=== PATIENT | female | born 1955 | race Two or more races ===

== ENCOUNTER → 2024-06-27 | Outpatient (CLI) | payer OTHER, SELFPAY ==
[2024-06-27 13:44] LABS: Alanine Aminotransferase 26 U/L (10-49); Albumin, Serum 4.5 gm/dL (3.4-4.8); Alkaline Phosphatase 125 U/L (46-116); Aspartate Amino Transferase 19 U/L (0-34); Bilirubin,Direct 0.1 mg/dL (0.0-0.3); Bilirubin,Total 0.3 mg/dL (0.3-1.2); C-Reactive Protein < 0.4 mg/dL (0.0-0.9); Total Protein 7.2 gm/dL (5.7-8.2)
[2024-07-04 23:36] LABS: Liver Fibro A-2 Macroglobulin 154 mg/dL (106-279); Liver Fibrosis ALT 21 U/L (6-29); Liver Fibrosis Apolipoprot A1 192 mg/dL (101-198); Liver Fibrosis GGTP 9 U/L (3-65); Liver Fibrosis Haptoglobin 174 mg/dL (43-212); Liver Fibrosis Reference ID 5212702; Liver Fibrosis Score 0.03; Liver Fibrosis Stage F0; Liver Fibrosis Total Bilirubin 0.2 mg/dL (0.2-1.2); Necroinflammat Act Grade A0; Necroinflammat Act Score 0.06
[2024-07-05 06:41] LABS: CA 19-9 Antigen* 12 U/mL (<34)
== END | disposition home or self-care (01) ==
LOC: COPL 12:03
PROVIDERS: PCP Specialist; Referring Provider Internal Medicine Gastroenterology; Visit Provider Internal Medicine Gastroenterology
DX: R10.13 Epigastric pain (principal)
CPT/HCPCS: 36415; 80076; 81596; 86140; 86301

== ENCOUNTER → 2024-06-29 | Outpatient (CLI) | payer OTHER, SELFPAY ==
[2024-07-09 07:24] LABS: Helicobacter pylori Ag, Stool* NOT DETECTED (NOT DETECTED)
== END | disposition home or self-care (01) ==
LOC: SLDO 12:21
PROVIDERS: PCP Internal Medicine Gastroenterology; Referring Provider Internal Medicine Gastroenterology; Visit Provider Internal Medicine Gastroenterology
DX: R10.13 Epigastric pain (principal)
CPT/HCPCS: 87338

== ENCOUNTER 2024-08-03 09:02 | Outpatient (RCR) | payer OTHER, MEDICAID, SELFPAY ==
--- NOTE | 2024-08-03 10:00 | XR_ITS ---
Examination: LINUS, hepatobiliary radioisotope scan Date and time of exam: August 03, 2024 at 0956 hours INDICATIONS: Right upper abdominal pain nausea vomiting acid reflux beginning April 2024, post cholecystectomy Technique: 5.6 mCi of 99M Hepatolite administered. Serial imaging then obtained from immediate through 60 minutes. Findings: Radioisotope activity within the liver is reasonably homogenous. No gallbladder activity Abundant activity in the common hepatic common bile duct and small bowel IMPRESSION: Negative for extrahepatic biliary tract obstruction
== END 2024-08-08 23:59 | disposition home or self-care (01) ==
LOC: SNUC 09:02
PROVIDERS: PCP Specialist; Referring Provider Internal Medicine Gastroenterology; Visit Provider Internal Medicine Gastroenterology
DX: R10.13 Epigastric pain (principal)
CPT/HCPCS: 78227; A9537

== ENCOUNTER → 2024-09-19 | Outpatient (CLI) | payer OTHER, SELFPAY ==
[2024-09-19 15:18] LABS: Glucose Estimated Average 151 mg/dL (80-131); Hemoglobin A1C 6.9 % Hgb (4.8-6.0)
[2024-09-19 15:27] LABS: Alanine Aminotransferase 23 U/L (10-49); Albumin, Serum 4.5 gm/dL (3.4-4.8); Albumin/Globulin Ratio 1.7 (1.2-2.2); Alkaline Phosphatase 112 U/L (46-116); Anion Gap 9 (7-16); Aspartate Amino Transferase 17 U/L (0-34); BUN/Creatinine Ratio 20 Ratio (12-20); Bilirubin,Total 0.3 mg/dL (0.3-1.2); Blood Urea Nitrogen 20 mg/dL (9-23); Calcium 9.4 mg/dL (8.3-10.6); Calcium (Corrected) 9.4 mg/dL (8.5-10.1); Carbon Dioxide 26.7 mMol/L (20.0-31.0); Chloride 109 mMol/L (98-107); Cholesterol 140 mg/dL (132-200); Globulin 2.6 gm/dL (2.3-3.5); Glucose 90 mg/dL (74-106); HDL Cholesterol 71 mg/dL (40-60); LDL Cholesterol,Calculated 40 mg/dL (0-130); Osmolality,Calculated 291 (275-295); Potassium 4.4 mMol/L (3.4-5.1); Sodium 145 mMol/L (136-145); Total Protein 7.1 gm/dL (5.7-8.2); Triglycerides 146 mg/dL (30-150); eGFR > 60 See Note
[2024-09-19 15:27] LABS: Creatinine MALB Rnd Ur 103 mg/dL (30-125); Microalbumin Creat Ratio 21 mg/gCrea (<30); Microalbumin, Random Urine 22 mg/L (0-300)
== END | disposition home or self-care (01) ==
LOC: COPL 13:29
PROVIDERS: PCP Specialist; Referring Provider Specialist; Visit Provider Specialist
DX: E11.69 Type 2 diabetes mellitus with other specified complication (principal)
CPT/HCPCS: 36415; 80053; 80061; 82043; 82570; 83036

== ENCOUNTER → 2024-11-05 | Outpatient (CLI) | payer OTHER, SELFPAY ==
[2024-11-05 16:11] LABS: B-Type Natriuretic Peptide 39 pg/mL (0-100)
[2024-11-05 16:16] LABS: Alanine Aminotransferase 51 U/L (10-49); Albumin, Serum 4.7 gm/dL (3.4-4.8); Albumin/Globulin Ratio 1.6 (1.2-2.2); Alkaline Phosphatase 111 U/L (46-116); Anion Gap 11 (7-16); Aspartate Amino Transferase 37 U/L (0-34); BUN/Creatinine Ratio 19 Ratio (12-20); Bilirubin,Total 0.5 mg/dL (0.3-1.2); Blood Urea Nitrogen 19 mg/dL (9-23); Calcium 9.5 mg/dL (8.3-10.6); Calcium (Corrected) 9.5 mg/dL (8.5-10.1); Carbon Dioxide 25.5 mMol/L (20.0-31.0); Chloride 106 mMol/L (98-107); Free T4 (Free Thyroxine) 1.25 ng/dL (0.89-1.76); Glucose 129 mg/dL (74-106); Osmolality,Calculated 287 (275-295); Sodium 142 mMol/L (136-145); Thyroid Stimulating Hormone 2.22 uIU/mL (0.55-4.78); Total Protein 7.7 gm/dL (5.7-8.2); Troponin I < 0.002 ng/mL (0.0-0.045); eGFR > 60 See Note
[2024-11-05 16:43] LABS: D-Dimer 366 ng/mL (<600)
== END | disposition home or self-care (01) ==
PROVIDERS: PCP Specialist; Referring Provider Specialist; Visit Provider Specialist
DX: E03.9 Hypothyroidism, unspecified (principal)
CPT/HCPCS: 36415; 80053; 83880; 84439; 84443; 84484; 85379

== ENCOUNTER → 2024-12-26 | Outpatient (CLI) | payer OTHER, SELFPAY ==
[2024-12-26 11:41] LABS: Glucose Estimated Average 143 mg/dL (80-131); Hemoglobin A1C 6.6 % Hgb (4.8-6.0)
[2024-12-26 11:54] LABS: Alanine Aminotransferase 35 U/L (10-49); Albumin, Serum 4.5 gm/dL (3.4-4.8); Albumin/Globulin Ratio 1.5 (1.2-2.2); Alkaline Phosphatase 119 U/L (46-116); Anion Gap 11 (7-16); Aspartate Amino Transferase 29 U/L (0-34); BUN/Creatinine Ratio 18 Ratio (12-20); Bilirubin,Total 0.5 mg/dL (0.3-1.2); Blood Urea Nitrogen 18 mg/dL (9-23); Calcium 9.2 mg/dL (8.3-10.6); Calcium (Corrected) 9.2 mg/dL (8.5-10.1); Carbon Dioxide 25.3 mMol/L (20.0-31.0); Cardiac Risk Estimate 2.3 RATIO (3.7-5.6); Chloride 108 mMol/L (98-107); Cholesterol 162 mg/dL (132-200); Glucose 149 mg/dL (74-106); HDL Cholesterol 70 mg/dL (40-60); LDL Cholesterol,Calculated 68 mg/dL (0-130); Osmolality,Calculated 291 (275-295); Potassium 4.2 mMol/L (3.4-5.1); Sodium 144 mMol/L (136-145); Total Protein 7.5 gm/dL (5.7-8.2); Triglycerides 120 mg/dL (30-150); eGFR > 60 See Note
[2024-12-26 12:13] LABS: Creatinine MALB Rnd Ur 82 mg/dL (30-125); Microalbumin Creat Ratio 59 mg/gCrea (<30); Microalbumin, Random Urine 48 mg/L (0-300)
== END | disposition home or self-care (01) ==
PROVIDERS: PCP Specialist; Referring Provider Specialist; Visit Provider Specialist
DX: E11.65 Type 2 diabetes mellitus with hyperglycemia (principal); E78.2 Mixed hyperlipidemia
CPT/HCPCS: 36415; 80053; 80061; 82043; 82570; 83036

== ENCOUNTER → 2025-01-16 | Outpatient (CLI) | payer OTHER, SELFPAY ==
--- NOTE | 2025-01-16 14:04 | XR_ITS ---
Examination: Abdomen AP single view Technique: AP portable supine abdomen, single view Exam date and time: January 16, 2025 1407 hours INDICATIONS: Abdominal pain beginning 3 days ago FINDINGS: Moderate stool throughout the colon Surgical clips upper right abdomen No obstruction No free air Intact osseous structures IMPRESSION: Moderate stool throughout the colon
[2025-01-16 14:51] LABS: Collection Type, Urine Clean Catch
[2025-01-16 15:09] LABS: Basophils # (Auto) 0.1 Thou/mm3 (0.0-0.2); Basophils % (Auto) 1 % (0-2.5); Eosinophils # (Auto) 0.2 Thou/mm3 (0.0-0.5); Eosinophils % (Auto) 3 % (0-10); Hematocrit 40.6 % (36.0-46.0); Hemoglobin 13.7 g/dL (12.0-16.0); Immature Granulocytes % (Auto) 0 % (0-0); Immature Granulocytes Auto 0.02 Thou/mm3 (0.00-0.00); Lymphocytes # (Auto) 2.1 Thou/mm3 (1.0-4.8); Lymphocytes % (Auto) 25 % (10-50); Mean Corpuscular HGB Conc 33.7 g/dl (31.0-37.0); Mean Corpuscular Volume 92 fL (80-100); Monocytes # (Auto) 0.6 Thou/mm3 (0.0-0.8); Monocytes % (Auto) 7 % (0-12); Neutrophils # (Auto) 5.6 Thou/mm3 (1.8-7.7); Neutrophils % (Auto) 65 % (37-80); Nucleated Red Blood Cell % 0 /100 WBC (0); Platelet Count 263 Thou/mm3 (140-440); RDW Standard Deviation 46.3 fL (36.4-46.3); Red Blood Count 4.42 Miln/mm3 (4.00-5.20); White Blood Count 8.7 Thou/mm3 (3.6-11.0)
--- NOTE | 2025-01-16 15:11 | XR_ITS ---
Examination: CT abdomen and pelvis without contrast. Coronal 3-D reconstructions. Sagittal 2-D reconstructions. Date and time of exam:January 16, 2025 1544 hours INDICATIONS: Generalized abdominal pain beginning 3 days ago CTDI: vol (mGy): 6.70 DLP: (mGycm): 377 Technique: Axial images of the abdomen have been obtained, 3 mm slice thickness Intravenous contrast material has not been administered. Low dose protocols were performed. One or more of the following dose reduction techniques were used; automated exposure control, adjustment of the mA and/or KV according to patient size, use of iterative reconstruction technique. Findings: Diffuse fatty infiltration throughout the liver Absent gallbladder Spleen not enlarged Common bile duct 12 mm No pancreatic mass [id number] bilateral renal parenchymal scar formation. No renal or ureteral calculi, no hydronephrosis 4 mm fat-containing umbilical hernia No pericecal inflammatory change Scattered colonic diverticulosis, no diverticulitis Absent uterus Contracted urinary bladder Moderate osteopenia IMPRESSION: Mildly enlarged common bile duct 12 mm, recommend hepatobiliary sonography follow-up [id number] bilateral renal parenchymal scar formation, no renal or ureteral calculi, no hydronephrosis Scattered colonic diverticulosis, no diverticulitis
[2025-01-16 15:14] LABS: Bacteria,Urine Rare; Bilirubin,Urine Negative (Negative); Blood,Urine Negative (Negative); Clarity,Urine Clear (Clear/Hazy); Color,Urine Lt-Yellow (Lt Yel-Yel); Glucose, Urine Negative (Negative); Hyaline Casts,Urine < 1 /hpf (0-1); Ketones,Urine Negative (Negative); Leukocyte Esterase,Urine Negative (Negative); Nitrite,Urine Negative (Negative); PH,Urine 6.5 (5.0-7.0); Protein,Urine 1+ (Neg - Trace); RBC,Urine 3 /hpf (0-3); Specific Gravity,Urine 1.027 (1.001-1.035); Squamous Epithelial Cell,Urine 3 /hpf (0-5); Urobilinogen,Urine Negative mg/dL (0.0-1.0); WBC,Urine 1 /hpf (0-5)
[2025-01-16 15:34] LABS: C-Reactive Protein < 0.5 mg/dL (0.0-0.9); Procalcitonin 0.11 ng/ml (0.0-0.49)
[2025-01-16 15:36] LABS: Sed Rate (ESR) 28 mm/hr (0-30)
[2025-01-16 21:50] LABS: Alanine Aminotransferase 40 U/L (10-49); Albumin, Serum 4.7 gm/dL (3.4-4.8); Albumin/Globulin Ratio 1.7 (1.2-2.2); Alkaline Phosphatase 121 U/L (46-116); Anion Gap 17 (7-16); Aspartate Amino Transferase 36 U/L (0-34); BUN/Creatinine Ratio 23 Ratio (12-20); Bilirubin,Total 0.4 mg/dL (0.3-1.2); Blood Urea Nitrogen 23 mg/dL (9-23); Calcium 9.4 mg/dL (8.3-10.6); Calcium (Corrected) 9.4 mg/dL (8.5-10.1); Chloride 109 mMol/L (98-107); Globulin 2.7 gm/dL (2.3-3.5); Glucose 144 mg/dL (74-106); Osmolality,Calculated 300 (275-295); Sodium 148 mMol/L (136-145); Total Protein 7.4 gm/dL (5.7-8.2); eGFR > 60 See Note
[2025-01-22 06:39] LABS: Complement Component C4c* 29 mg/dL (15-57)
== END | disposition home or self-care (01) ==
LOC: CDIM 14:01 → COPL 14:29
PROVIDERS: PCP Specialist; Referring Provider Specialist; Visit Provider Specialist
DX: R10.84 Generalized abdominal pain (principal)
CPT/HCPCS: 36415; 74018; 74176; 80053; 81001; 84145; 85025; 85652; 86140; 86160; 87086

== ENCOUNTER 2025-03-11 10:15 | Outpatient (AMB) | payer OTHER, SELFPAY ==
--- NOTE | 2025-03-11 10:29 | GSCOFFNT_ITS ---
Vital Signs - [facility] 03/11/25 10:30 Height 1.5 m Height Method Measured Weight 67.642 kg Weight Measurement Method Standing Scale BMI 30.0 BP 178/85 H Blood Pressure Source Automatic Cuff Blood Pressure Location Right Upper Arm Position Sitting Respiration 18 Pulse 76 Pulse Source Monitor Temp 96.0 F L Temp Source Temporal Artery Scan Pulse Oximetry (%) 94 L Oxygen Delivery Method Room Air Med/Allergies Allergies & Medications Allergies codeine Allergy (Intermediate, Verified 03/11/25 10:34) HIVES atorvastatin (From Lipitor) Allergy (Verified 03/11/25 10:34) Weakness metformin Allergy (Verified 03/11/25 10:34) NAUSEA, VOMITING metoprolol (From Toprol XL) Allergy (Verified 03/11/25 10:34) Nausea eszopiclone Adverse Reaction (Intermediate, Verified 03/11/25 10:34) SLEEP WALKING,AMNESIA ACEI Allergy (Uncoded 03/11/25 10:34) Unresponsive Medication Reconciliation nitroglycerin 0.4 mg sublingual tablet (Nitrostat) 0.4 mg SL PRN PRN CHEST TIGHTNESS #0 tabs 04/19/14 [History Confirmed 03/11/25] montelukast 10 mg tablet (Singulair) 10 mg PO QPM 05/02/19 [History Confirmed 03/11/25] rosuvastatin 5 mg tablet 40 mg PO QDAY 05/02/19 [History Confirmed 03/11/25] ipratropium 0.5 mg-albuterol 3 mg (2.5 mg base)/3 mL nebulization soln 3 ml inhalation Q4HR PRN Shortness Of Breath 11/25/20 [History Confirmed 03/11/25] tramadol 50 mg tablet 50 mg PO TID PRN Pain 11/25/20 [History Confirmed 03/11/25] isosorbide mononitrate 30 mg tablet,extended release 24 hr 30 mg PO QDAY 08/17/21 [History Confirmed 03/11/25] linagliptin 5 mg tablet (Tradjenta) 5 mg PO 1XD 04/24/24 [History Confirmed 03/11/25] melatonin 10 mg tablet 10 mg PO HS PRN Insomnia 04/24/24 [History Confirmed 03/11/25] amiloride 5 mg tablet 5 mg PO QDAY #30 tabs 05/01/24 [Rx Confirmed 03/11/25] erythromycin ethylsuccinate 400 mg/5 mL oral powder for suspension 400 mg (5 mL) PO QDAY #100 mL 05/01/24 [Rx Confirmed 03/11/25] losartan 50 mg tablet 50 mg PO QDAY #30 tabs 05/01/24 [Rx Confirmed 03/11/25] MA Intake Visit Data Collection New Patient or Established: Established Patient (seen at [facility] within 3 years) Seen by Clinical Staff ONLY (RN/MA): No Pain Present Currently: Yes (ABDOMINAL DISCOMFORT) Pain Location: Abdomen Pain scale:: 1 Pain Scale Used: [place]/Numerical Silk Screen Etcher Required: No PCP or OBGYN visit in last 3 months: Yes Hx Now: No Do You Feel Safe at Home: Yes Authorities Contacted: N/A Smoking Status Smoking Status: Never smoker Immunization / Flu Flu Vaccine in the Last 12 Months: Yes Flu Vaccine Exclusion Criteria: Already Received Past Medical History Past Medical History NEUROLOGIC: Negative Neurological Disorders or Seizures CARDIAC: Positive Cardiac Disorders, Myocardial Infarction (1 CARDIAC STENT), Angina, Atherosclerotic Heart Disease, Hypercholesterolemia, Congestive Heart Failure and Hypertension RESPIRATORY: Positive Chronic Obstructive Pulmonary Disease (COPD), Asthma, Bronchitis and Sleep Apnea GASTROINTESTINAL: Positive Irritable Bowel, Hemorrhoids and Gastroesophageal Reflux Disease; Negative Gastrointestinal Disorders or Hepatitis GENITOURINARY: Negative Genitourinary Disorders or Renal Disease REPRODUCTIVE: Positive Previous Pregnancies; Negative Breast Cancer MUSCULOSKELETAL: Positive Arthritis ENT: Positive Cataracts (BILATERAL WITH IOL) ENDOCRINE: Positive Endocrine Disorders and Diabetes Mellitus Type 2; Negative Diabetes Mellitus Type 1 HEMATOLOGIC: Negative Blood Disorders, Anemia or Sickle Cell Disease OTHER HISTORY: Positive Chicken Pox; Negative Falls, Blood Transfusions, Blood Transfusion Reaction, Anesthesia Reactions, MRSA, Cancer or Breast Cancer Family History FAMILY HISTORY: Positive Family Cardiac Disorders (PARENTS); Negative Family Psychiatric Problems, Family Respiratory Disorders, Family Gastrointestinal Problems or Family Anesthesia Reaction Surgical History SURGICAL: Positive Cardiac Surgery (pt. stated that she had Stent placed in February of 2016), Coronary Stent, Angiogram, Abdominal Surgery, Arthroscopy and Hysterectomy; Negative Endocrine Surgery Social History SMOKING STATUS: Smoking status: Never smoker SECOND HAND EXPOSURE: second hand exposure: No ALCOHOL: Alcohol Intake: Never HOUSING: Housing: House LIVES WITH: Lives With: Spouse HPI HPI Narrative 69F with HTN, DMII, asthma, CAD referred for symptomatic hemorrhoids. Pt states she has long had difficulty having BMs, previously having BMs only on a weekly basis but she has worked hard to improve her diet, increase her water intake and has taken fiber as well as senokot such that she is able to have BMs more regularly but still finds that her BMs are hard small pieces. She has also lately noticed difficulty controlling her BMs, sometimes having small amounts of stool leak out when she does not feel a sensation of having to go. Additionally pt reports perianal pain, sometimes it feels like she is passing razor blades as well as some bleeding. Pt underwent EGD/colonoscopy in the last year with findings of gastritis but colonoscopy was negative for any polyps. Pt does take sitz baths but feels there is minimal relief PMH: HTN, DMII, asthma, CAD with history of stent and occasional angina PSHx: Cardiac stent, abdominal repair of rectocele/cystocele, cholecystectomy, t otal hysterectomy Meds: Amiloride, erythromycin, ipratropium, isosorbide mononitrate, tradjenta, losartan, montelukast, nitroglycerin PRN, rosuvastatin, tramadol Allergies: codeine causes hives Social hx: Nonsmoker, gave vaginally x3 ROS Review of Systems Systems Reviewed: All systems reviewed, normal except as documented Objective/Exam General General Appearance: alert, cooperative and well groomed Resp Respiratory exam: Absent respiratory distress Rectal Rectal exam: Present other (sentinel pile at anterior midline of anus, tender to palpation, anoscopy deferred due to pain) Assessment & Plan Diagnosis / Problem List (1) Anal fissure: Status: Acute Assessment & Plan: 69F with HTN, DMII, asthma, CAD presenting with perianal pain as well as fecal incontinence. I explained that for the anal fissure a compound cream can be helpful to improve pain, however it costs $100 and pt understandably is not able to afford it right now. Although she has tried fiber in the past I recommended she try again and work up to 3 tbsp daily for a goal of 25g total daily, and to stop senokot for now as she sometimes have loose stools which likely contributes to her episodes of incontinence. She may benefit from physical therapy as well to strengthen pelvic floor muscles. Pt expressed willingness to try fiber again and will follow up in 6 weeks Advanced Care Planning Advance care planning discussed with:: other Office Procedures GNS Level of Care Nursing/Assessment Patient Status: Established Patient Nursing Assessment/Reassesment: Medication Reconciliation, Update PMH in EMR and Vital Signs Coordination of Care: Complex Care and Chronic Disease 1-5, Consent,records obtained, informed consent, Education Simp Pt/Fam, Results/Orders obtained and Staff clarify orders Established Patient Charge Established Patient Point Assignment: 90 Established Patient Point Charge: EP Level 3 (80-115) Patient Portal Questionaires Social History Living Situation History Housing: House Housing Other:: Pt form home Tobacco History Smoking Status: Never smoker Second Hand Smoke Exposure: No Alcohol History Alcohol Intake: Never Domestic Abuse History Do You Feel Safe at Home: Yes Review of Systems Report any current symptoms Only answer those that you have currently: Past Medical History Past Medical History Have you ever been diagnosed with any of the following: Neurological Problems Seizures: No Cardiology Problems Myocardial Infarction: Yes (1 CARDIAC STENT) Angina: Yes Atherosclerotic Heart Disease: Yes Hypercholesterolemia: Yes Congestive Heart Failure: Yes Hypertension: Yes Respiratory Problems Chronic Obstructive Pulmonary Disease (COPD): Yes Asthma: Yes Bronchitis: Yes Sleep Apnea: Yes Stomache/Intestinal Problems Hepatitis: No Irritable Bowel: Yes Hemorrhoids: Yes Gastroesophageal Reflux Disease: Yes Genital/Urinary Problems Renal Disease: No Reproductive Problems Breast Cancer: No Previous Pregnancies: Yes Musculoskeletal Problems Arthritis: Yes Head,Eye,Nose,Throat Problems Cataracts: Yes (BILATERAL WITH IOL) Endocrine Problems Diabetes Mellitus Type 1: No Diabetes Mellitus Type 2: Yes Blood Problems Anemia: No Sickle Cell Disease: No Other Problems Falls: No Blood Transfusions: No Blood Transfusion Reaction: No Anesthesia Reactions: No MRSA: No Chicken Pox: Yes Cancer: No Surgical History Hysterectomy: Yes
[2025-03-11 10:30] VITALS: BP 178/85; PULSE 76; RESP 18; TEMP 35.6; O2SAT 94
== END 2025-03-11 11:30 | disposition home or self-care (01) ==
PROVIDERS: PCP Specialist; Referring Provider Specialist; Supervising Provider Surgery; Visit Provider Surgery
DX: K60.2 Anal fissure, unspecified (principal); R15.9 Full incontinence of feces; E78.00 Pure hypercholesterolemia, unspecified; I11.0 Hypertensive heart disease with heart failure; I50.9 Heart failure, unspecified; J44.9 Chronic obstructive pulmonary disease, unspecified; E11.9 Type 2 diabetes mellitus without complications; I25.2 Old myocardial infarction
CPT/HCPCS: 99213; G0463

== ENCOUNTER → 2025-03-26 | Outpatient (CLI) | payer OTHER, SELFPAY ==
[2025-03-26 10:51] LABS: Glucose Estimated Average 160 mg/dL (80-131); Hemoglobin A1C 7.2 % Hgb (4.8-6.0)
[2025-03-26 10:58] LABS: B-Type Natriuretic Peptide 46 pg/mL (0-100)
[2025-03-26 11:11] LABS: Misc Send Out* See Sep Rpt
[2025-03-26 11:12] LABS: Alanine Aminotransferase 35 U/L (10-49); Albumin, Serum 4.7 gm/dL (3.4-4.8); Albumin/Globulin Ratio 2.0 (1.2-2.2); Alkaline Phosphatase 128 U/L (46-116); Anion Gap 14 (7-16); Aspartate Amino Transferase 35 U/L (0-34); BUN/Creatinine Ratio 15 Ratio (12-20); Bilirubin,Total 0.5 mg/dL (0.3-1.2); Blood Urea Nitrogen 20 mg/dL (9-23); Calcium 9.4 mg/dL (8.3-10.6); Calcium (Corrected) 9.4 mg/dL (8.5-10.1); Carbon Dioxide 29.6 mMol/L (20.0-31.0); Cardiac Risk Estimate 2.5 RATIO (3.7-5.6); Chloride 101 mMol/L (98-107); Cholesterol 155 mg/dL (132-200); Creatinine (Component) 1.3 mg/dL (0.6-1.3); Free T3 2.4 pg/mL (2.3-4.2); Free T4 (Free Thyroxine) 1.23 ng/dL (0.89-1.76); Globulin 2.4 gm/dL (2.3-3.5); Glucose 236 mg/dL (74-106); HDL Cholesterol 62 mg/dL (40-60); LDL Cholesterol,Calculated 61 mg/dL (0-130); Osmolality,Calculated 299 (275-295); Potassium 3.0 mMol/L (3.4-5.1); Sodium 145 mMol/L (136-145); Thyroid Stimulating Hormone 1.70 uIU/mL (0.55-4.78); Total Protein 7.1 gm/dL (5.7-8.2); Triglycerides 161 mg/dL (30-150); eGFR 44 See Note
[2025-03-26 11:58] LABS: Creatinine MALB Rnd Ur 132 mg/dL (30-125)
[2025-03-26 12:13] LABS: Microalbumin Creat Ratio 292 mg/gCrea (<30); Microalbumin, Random Urine 385 mg/L (0-300)
[2025-03-29 06:45] LABS: ACTH, Plasma* 17 pg/mL (6-50)
== END | disposition home or self-care (01) ==
LOC: COPL 09:55
PROVIDERS: PCP Specialist; Referring Provider Specialist; Visit Provider Specialist
DX: E03.9 Hypothyroidism, unspecified (principal); E11.65 Type 2 diabetes mellitus with hyperglycemia; E78.2 Mixed hyperlipidemia; R63.5 Abnormal weight gain
CPT/HCPCS: 36415; 80053; 80061; 82024; 82043; 82530; 82570; 83036; 83880; 84439; 84443; 84481

== ENCOUNTER → 2025-04-10 | Outpatient (CLI) | payer OTHER, SELFPAY ==
--- NOTE | 2025-04-10 | XR_ITS ---
Examination: Abdomen AP single view Technique: AP portable supine abdomen, single view Exam date and time: April 10, 2025, 1014 hrs. Indications: Abdominal pain beginning 3 months ago Findings: Moderate stool throughout the colon. No obstruction. No free air. Surgical clips upper right abdomen. Impression: Nonobstructive bowel gas pattern.
== END | disposition home or self-care (01) ==
PROVIDERS: PCP Specialist; Referring Provider Specialist; Visit Provider Specialist
DX: R14.0 Abdominal distension (gaseous) (principal); R10.13 Epigastric pain
CPT/HCPCS: 74018

== ENCOUNTER 2025-04-22 09:43 | Outpatient (AMB) | payer OTHER, SELFPAY ==
[2025-04-22 09:59] VITALS: BP 154/76; PULSE 63; RESP 18; TEMP 36.6; O2SAT 93
--- NOTE | 2025-04-22 09:59 | GSCOFFNT_ITS ---
Vital Signs - [facility] 04/22/25 09:59 Height 1.5 m Height Method Measured Weight 67.699 kg Weight Measurement Method Standing Scale BMI 30.0 BP 154/76 H Blood Pressure Source Automatic Cuff Blood Pressure Location Right Upper Arm Position Sitting Respiration 18 Pulse 63 Pulse Source Monitor Temp 97.9 F Temp Source Temporal Artery Scan Pulse Oximetry (%) 93 L Oxygen Delivery Method Room Air Med/Allergies Allergies & Medications Allergies codeine Allergy (Intermediate, Verified 04/22/25 10:00) HIVES atorvastatin (From Lipitor) Allergy (Verified 04/22/25 10:00) Weakness metformin Allergy (Verified 04/22/25 10:00) NAUSEA, VOMITING metoprolol (From Toprol XL) Allergy (Verified 04/22/25 10:00) Nausea eszopiclone Adverse Reaction (Intermediate, Verified 04/22/25 10:00) SLEEP WALKING,AMNESIA ACEI Allergy (Uncoded 04/22/25 10:00) Unresponsive Medication Reconciliation nitroglycerin 0.4 mg sublingual tablet (Nitrostat) 0.4 mg SL PRN PRN CHEST TIGHTNESS #0 tabs 04/19/14 [History Confirmed 04/22/25] montelukast 10 mg tablet (Singulair) 10 mg PO QPM 05/02/19 [History Confirmed 04/22/25] rosuvastatin 5 mg tablet 40 mg PO QDAY 05/02/19 [History Confirmed 04/22/25] ipratropium 0.5 mg-albuterol 3 mg (2.5 mg base)/3 mL nebulization soln 3 ml inhalation Q4HR PRN Shortness Of Breath 11/25/20 [History Confirmed 04/22/25] tramadol 50 mg tablet 50 mg PO TID PRN Pain 11/25/20 [History Confirmed 04/22/25] isosorbide mononitrate 30 mg tablet,extended release 24 hr 30 mg PO QDAY 08/17/21 [History Confirmed 04/22/25] linagliptin 5 mg tablet (Tradjenta) 5 mg PO 1XD 04/24/24 [History Confirmed 04/22/25] melatonin 10 mg tablet 10 mg PO HS PRN Insomnia 04/24/24 [History Confirmed 04/22/25] amiloride 5 mg tablet 5 mg PO QDAY #30 tabs 05/01/24 [Rx Confirmed 04/22/25] erythromycin ethylsuccinate 400 mg/5 mL oral powder for suspension 400 mg (5 mL) PO QDAY #100 mL 05/01/24 [Rx Confirmed 04/22/25] losartan 50 mg tablet 50 mg PO QDAY #30 tabs 05/01/24 [Rx Confirmed 04/22/25] MA Intake Visit Data Collection New Patient or Established: Established Patient (seen at [facility] within 3 years) Seen by Clinical Staff ONLY (RN/MA): No Reason for Visit:: F/U HEMORRHOIDS Pain Present Currently: No Pain Scale Used: [place]/Numerical Restaurant General Manager Required: No PCP or OBGYN visit in last 3 months: Yes Hx Now: No Do You Feel Safe at Home: Yes Authorities Contacted: N/A Smoking Status Smoking Status: Never smoker Immunization / Flu Flu Vaccine in the Last 12 Months: Yes Flu Vaccine Exclusion Criteria: Already Received Past Medical History Past Medical History NEUROLOGIC: Negative Neurological Disorders or Seizures CARDIAC: Positive Cardiac Disorders, Myocardial Infarction (1 CARDIAC STENT), Angina, Atherosclerotic Heart Disease, Hypercholesterolemia, Congestive Heart Failure and Hypertension RESPIRATORY: Positive Chronic Obstructive Pulmonary Disease (COPD), Asthma, Bronchitis and Sleep Apnea GASTROINTESTINAL: Positive Irritable Bowel, Hemorrhoids and Gastroesophageal Reflux Disease; Negative Gastrointestinal Disorders or Hepatitis GENITOURINARY: Negative Genitourinary Disorders or Renal Disease REPRODUCTIVE: Positive Previous Pregnancies; Negative Breast Cancer MUSCULOSKELETAL: Positive Arthritis ENT: Positive Cataracts (BILATERAL WITH IOL) ENDOCRINE: Positive Endocrine Disorders and Diabetes Mellitus Type 2; Negative Diabetes Mellitus Type 1 HEMATOLOGIC: Negative Blood Disorders, Anemia or Sickle Cell Disease OTHER HISTORY: Positive Chicken Pox; Negative Falls, Blood Transfusions, Blood Transfusion Reaction, Anesthesia Reactions, MRSA, Cancer or Breast Cancer Family History FAMILY HISTORY: Positive Family Cardiac Disorders (PARENTS); Negative Family Psychiatric Problems, Family Respiratory Disorders, Family Gastrointestinal Problems or Family Anesthesia Reaction Surgical History SURGICAL: Positive Cardiac Surgery (pt. stated that she had Stent placed in February of 2016), Coronary Stent, Angiogram, Abdominal Surgery, Arthroscopy and Hysterectomy; Negative Endocrine Surgery Social History SMOKING STATUS: Smoking status: Never smoker SECOND HAND EXPOSURE: second hand exposure: No ALCOHOL: Alcohol Intake: Never HOUSING: Housing: House LIVES WITH: Lives With: Spouse HPI HPI Narrative 69F with HTN, DMII, asthma, CAD here for follow up of hemorrhoids. At last visit pt had a symptomatic anal fissure but these symptoms have since improved. Pt reports she is taking AG1 once daily which contains 2g of fiber, as well as miralax and prune juice at her PCP recommendations and she is having somewhat loose stools and continuing to have episodes of incontinence. Pt also feels it is hard to keep the area clean, it is improved when she uses the bidet at her son's house but otherwise feels that she has to wipe frequently. At the moment she is not having any pain or bleeding, her main concerns being the incontinence and difficulty with hygiene ROS Review of Systems Systems Reviewed: All systems reviewed, normal except as documented Objective/Exam General General Appearance: alert, cooperative and well groomed Resp Respiratory exam: Absent respiratory distress Extremities Extremities exam: Present other (small external hemorrhoid, mild internal hemorrhoids on anoscopy with stool in vault) Assessment & Plan Diagnosis / Problem List (1) Hemorrhoids: Status: Acute Assessment & Plan: 69F with HTN, DMII, asthma, CAD here for follow up of hemorrhoids with symptoms of fecal incontinence and difficulty with hygiene. She is working hard at improving her bowel habits but is having loose stools which likely contribute to the incontinence. I recommended she increase her fiber intake and provided her an informative handout as to how much she needs daily, and also recommended that she wean off miralax and prune juice one at a time to this end. I did explain the THD procedure and provided a brochure on this as well but as she is still adjusting her bowel regimen I do not advise proceeding as of yet and pt is understanding on this front. All questions were answered and pt agrees to follow up again in 6 weeks Advanced Care Planning Advance care planning discussed with:: other Office Procedures GNS Level of Care Nursing/Assessment Patient Status: Established Patient Nursing Assessment/Reassesment: Medication Reconciliation, Update PMH in EMR and Vital Signs Coordination of Care: Complex Care and Chronic Disease 1-5, Consent,records obtained, informed consent, Education Simp Pt/Fam, Results/Orders obtained and Staff clarify orders Established Patient Charge Established Patient Point Assignment: 90 Established Patient Point Charge: EP Level 3 (80-115) Patient Portal Questionaires Social History Living Situation History Housing: House Housing Other:: Pt form home Tobacco History Smoking Status: Never smoker Second Hand Smoke Exposure: No Alcohol History Alcohol Intake: Never Domestic Abuse History Do You Feel Safe at Home: Yes Review of Systems Report any current symptoms Only answer those that you have currently: Past Medical History Past Medical History Have you ever been diagnosed with any of the following: Neurological Problems Seizures: No Cardiology Problems Myocardial Infarction: Yes (1 CARDIAC STENT) Angina: Yes Atherosclerotic Heart Disease: Yes Hypercholesterolemia: Yes Congestive Heart Failure: Yes Hypertension: Yes Respiratory Problems Chronic Obstructive Pulmonary Disease (COPD): Yes Asthma: Yes Bronchitis: Yes Sleep Apnea: Yes Stomache/Intestinal Problems Hepatitis: No Irritable Bowel: Yes Hemorrhoids: Yes Gastroesophageal Reflux Disease: Yes Genital/Urinary Problems Renal Disease: No Reproductive Problems Breast Cancer: No Previous Pregnancies: Yes Musculoskeletal Problems Arthritis: Yes Head,Eye,Nose,Throat Problems Cataracts: Yes (BILATERAL WITH IOL) Endocrine Problems Diabetes Mellitus Type 1: No Diabetes Mellitus Type 2: Yes Blood Problems Anemia: No Sickle Cell Disease: No Other Problems Falls: No Blood Transfusions: No Blood Transfusion Reaction: No Anesthesia Reactions: No MRSA: No Chicken Pox: Yes Cancer: No Surgical History Hysterectomy: Yes
== END 2025-04-22 11:04 | disposition home or self-care (01) ==
LOC: HODSRG 09:43
PROVIDERS: PCP Specialist; Referring Provider Specialist; Supervising Provider Surgery; Visit Provider Surgery
DX: K64.4 Residual hemorrhoidal skin tags (principal); K64.8 Other hemorrhoids; I11.0 Hypertensive heart disease with heart failure; I50.9 Heart failure, unspecified; E78.00 Pure hypercholesterolemia, unspecified; I25.10 Atherosclerotic heart disease of native coronary artery without angina pectoris; I25.2 Old myocardial infarction; J44.9 Chronic obstructive pulmonary disease, unspecified; K21.9 Gastro-esophageal reflux disease without esophagitis; E11.9 Type 2 diabetes mellitus without complications
CPT/HCPCS: 99213; G0463

== ENCOUNTER → 2025-04-22 | Outpatient (CLI) | payer OTHER, SELFPAY ==
--- NOTE | 2025-04-22 13:45 | XR_ITS ---
Examination: Screening digital mammography, bilateral Computer aided detection 3-D breast Tomosynthesis, bilateral Date and time of exam: April 22, 2025 1338 hours Compared to mammograms dating to July 28, 2015 Indication: Screening Technique: Nonmagnified MLO, CC views of the breasts to been obtained, reconstructed from 3-D Tomosynthesis images. R2 computer aided detection program utilized for evaluation of suspicious masses and/or abnormal calcifications. 3-D Tomosynthesis images obtained. Findings: Scattered areas of fibroglandular density. Benign calcifications. No interval suspicious masses Impression: BI-RADS category II: Benign Findings. Recommend 1 year follow-up mammogram.
== END | disposition home or self-care (01) ==
PROVIDERS: PCP Specialist; Referring Provider Specialist; Visit Provider Specialist
DX: Z12.31 Encounter for screening mammogram for malignant neoplasm of breast (principal); R92.323 Mammographic fibroglandular density, bilateral breasts; R92.1 Mammographic calcification found on diagnostic imaging of breast
CPT/HCPCS: 77063; 77067

== ENCOUNTER → 2025-04-29 | Outpatient (CLI) | payer OTHER, MEDICAID, SELFPAY ==
[2025-04-29 11:09] LABS: Collection Type, Urine Clean Catch
[2025-04-29 11:42] LABS: Parathyroid Hormone Intact 71.6 pg/ml (18.5-88.0)
[2025-04-29 11:46] LABS: Alanine Aminotransferase 47 U/L (10-49); Albumin, Serum 4.6 gm/dL (3.4-4.8); Albumin/Globulin Ratio 2.0 (1.2-2.2); Alkaline Phosphatase 141 U/L (46-116); Anion Gap 10 (7-16); Aspartate Amino Transferase 32 U/L (0-34); BUN/Creatinine Ratio 22 Ratio (12-20); Bilirubin,Total 0.3 mg/dL (0.3-1.2); Blood Urea Nitrogen 22 mg/dL (9-23); Calcium 9.8 mg/dL (8.3-10.6); Calcium (Corrected) 9.8 mg/dL (8.5-10.1); Carbon Dioxide 26.3 mMol/L (20.0-31.0); Chloride 107 mMol/L (98-107); Creatinine (Component) 1.0 mg/dL (0.6-1.3); Globulin 2.3 gm/dL (2.3-3.5); Glucose 185 mg/dL (74-106); Osmolality,Calculated 293 (275-295); Potassium 5.3 mMol/L (3.4-5.1); Sodium 143 mMol/L (136-145); Total Protein 6.9 gm/dL (5.7-8.2); eGFR > 60 See Note
[2025-04-29 11:49] LABS: Bilirubin,Urine Negative (Negative); Blood,Urine Negative (Negative); Clarity,Urine Clear (Clear/Hazy); Color,Urine Lt-Yellow (Lt Yel-Yel); Glucose, Urine Negative (Negative); Ketones,Urine Negative (Negative); Leukocyte Esterase,Urine Negative (Negative); Nitrite,Urine Negative (Negative); PH,Urine 6.0 (5.0-7.0); Protein,Urine 1+ (Neg - Trace); RBC,Urine < 1 /hpf (0-3); Specific Gravity,Urine 1.027 (1.001-1.035); Squamous Epithelial Cell,Urine 2 /hpf (0-5); Urobilinogen,Urine Negative mg/dL (0.0-1.0); WBC,Urine < 1 /hpf (0-5)
== END | disposition home or self-care (01) ==
LOC: COPL 10:10
PROVIDERS: PCP Specialist; Referring Provider Specialist; Visit Provider Internal Medicine
DX: N17.9 Acute kidney failure, unspecified (principal); I10 Essential (primary) hypertension
CPT/HCPCS: 36415; 80053; 81001; 83970

== ENCOUNTER 2025-06-10 08:39 | Outpatient (AMB) | payer OTHER, SELFPAY ==
--- NOTE | 2025-06-10 08:55 | PD.GSCLVISIT ---
[facility]ital Signs - [facility] 06/10/25 09:02 Height 1.5 m Height Method Measured Weight 68.039 kg Weight Measurement Method Standing Scale BMI 30.2 BP 125/82 Blood Pressure Source Automatic Cuff Blood Pressure Location Left Upper Arm Position Sitting Respiration 18 Pulse 74 Pulse Source Monitor Temp 97.0 F Temp Source Temporal Artery Scan Pulse Oximetry (%) 92 L Oxygen Delivery Method Room Air Med/Allergies Allergies & Medications Allergies codeine Allergy (Intermediate, Verified 06/10/25 09:03) HIVES atorvastatin (From Lipitor) Allergy (Verified 06/10/25 09:03) Weakness metformin Allergy (Verified 06/10/25 09:03) NAUSEA, VOMITING metoprolol (From Toprol XL) Allergy (Verified 06/10/25 09:03) Nausea eszopiclone Adverse Reaction (Intermediate, Verified 06/10/25 09:03) SLEEP WALKING,AMNESIA ACEI Allergy (Uncoded 06/10/25 09:03) Unresponsive Medication Reconciliation nitroglycerin 0.4 mg sublingual tablet (Nitrostat) 0.4 mg SL PRN PRN CHEST TIGHTNESS #0 tabs 04/19/14 [History Confirmed 06/10/25] montelukast 10 mg tablet (Singulair) 10 mg PO QPM 05/02/19 [History Confirmed 06/10/25] rosuvastatin 5 mg tablet 40 mg PO QDAY 05/02/19 [History Confirmed 06/10/25] ipratropium 0.5 mg-albuterol 3 mg (2.5 mg base)/3 mL nebulization soln 3 ml inhalation Q4HR PRN Shortness Of Breath 11/25/20 [History Confirmed 06/10/25] tramadol 50 mg tablet 50 mg PO TID PRN Pain 11/25/20 [History Confirmed 06/10/25] isosorbide mononitrate 30 mg tablet,extended release 24 hr 30 mg PO QDAY 08/17/21 [History Confirmed 06/10/25] linagliptin 5 mg tablet (Tradjenta) 5 mg PO 1XD 04/24/24 [History Confirmed 06/10/25] melatonin 10 mg tablet 10 mg PO HS PRN Insomnia 04/24/24 [History Confirmed 06/10/25] amiloride 5 mg tablet 5 mg PO QDAY #30 tabs 05/01/24 [Rx Confirmed 06/10/25] erythromycin ethylsuccinate 400 mg/5 mL oral powder for suspension 400 mg (5 mL) PO QDAY #100 mL 05/01/24 [Rx Confirmed 06/10/25] losartan 50 mg tablet 50 mg PO QDAY #30 tabs 05/01/24 [Rx Confirmed 06/10/25] MA Intake Visit Data Collection New Patient or Established: Established Patient (seen at [facility] within 3 years) Seen by Clinical Staff ONLY (RN/MA): No Reason for Visit:: 6 WEEK F/U Pain Present Currently: Yes Pain Location: Rectum Pain scale:: 2 Pain Scale Used: [place]/Numerical Air Crew Officer Required: No PCP or OBGYN visit in last 3 months: Yes Hx Now: No Do You Feel Safe at Home: Yes Authorities Contacted: N/A Smoking Status Smoking Status: Never smoker Immunization / Flu Flu Vaccine in the Last 12 Months: Yes Flu Vaccine Exclusion Criteria: Already Received Past Medical History Past Medical History NEUROLOGIC: Negative Neurological Disorders or Seizures CARDIAC: Positive Cardiac Disorders, Myocardial Infarction (1 CARDIAC STENT), Angina, Atherosclerotic Heart Disease, Hypercholesterolemia, Congestive Heart Failure and Hypertension RESPIRATORY: Positive Chronic Obstructive Pulmonary Disease (COPD), Asthma, Bronchitis and Sleep Apnea GASTROINTESTINAL: Positive Irritable Bowel, Hemorrhoids and Gastroesophageal Reflux Disease; Negative Gastrointestinal Disorders or Hepatitis GENITOURINARY: Negative Genitourinary Disorders or Renal Disease REPRODUCTIVE: Positive Previous Pregnancies; Negative Breast Cancer MUSCULOSKELETAL: Positive Arthritis ENT: Positive Cataracts (BILATERAL WITH IOL) ENDOCRINE: Positive Endocrine Disorders and Diabetes Mellitus Type 2; Negative Diabetes Mellitus Type 1 HEMATOLOGIC: Negative Blood Disorders, Anemia or Sickle Cell Disease OTHER HISTORY: Positive Chicken Pox; Negative Falls, Blood Transfusions, Blood Transfusion Reaction, Anesthesia Reactions, MRSA, Cancer or Breast Cancer Family History FAMILY HISTORY: Positive Family Cardiac Disorders (PARENTS); Negative Family Psychiatric Problems, Family Respiratory Disorders, Family Gastrointestinal Problems or Family Anesthesia Reaction Surgical History SURGICAL: Positive Cardiac Surgery (pt. 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 Pt states they are still bothersome and she continues to have loose stools with episodes of incontinence at any and all times of the day. She is still taking AG1 once daily which contains 2g of fiber and taking miralax every other day but has stopped taking prune juice, and she does drink plenty of water. 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 Pt finds them very bothersome and would like to have surgery but she understands that her recovery will be easier if she can improve the quality of her bowel movements. I explained that metamucil can help to bulk up her stools and recommended she take it two times daily (in addition to the AG1 once daily) and stop miralax. We will follow up in 6 weeks and likely schedule THD/hemorrhoidectomy once stools are more formed. All questions were answered and pt is agreeable with this plan Advanced Care Planning Advance care planning discussed with:: other Office Procedures GNS Level of Care Nursing/Assessment Patient Status: Established Patient Nursing Assessment/Reassesment: Medication Reconciliation, Update PMH in EMR and Vital Signs Coordination of Care: Complex Care and Chronic Disease 1-5, Education Complex Pt/Fam, Consent,records obtained, informed consent, Results/Orders obtained and Staff clarify orders Established Patient Charge Established Patient Point Assignment: 95 Established Patient Point Charge: EP Level 3 (80-115) Patient Portal Questionaires Social History Living Situation History Housing: House Housing Other:: Pt form home Tobacco History Smoking Status: Never smoker Second Hand Smoke Exposure: No Alcohol History Alcohol Intake: Never Domestic Abuse History Do You Feel Safe at Home: Yes Review of Systems Report any current symptoms Only answer those that you have currently: Past Medical History Past Medical History Have you ever been diagnosed with any of the following: Neurological Problems Seizures: No Cardiology Problems Myocardial Infarction: Yes (1 CARDIAC STENT) Angina: Yes Atherosclerotic Heart Disease: Yes Hypercholesterolemia: Yes Congestive Heart Failure: Yes Hypertension: Yes Respiratory Problems Chronic Obstructive Pulmonary Disease (COPD): Yes Asthma: Yes Bronchitis: Yes Sleep Apnea: Yes Stomache/Intestinal Problems Hepatitis: No Irritable Bowel: Yes Hemorrhoids: Yes Gastroesophageal Reflux Disease: Yes Genital/Urinary Problems Renal Disease: No Reproductive Problems Breast Cancer: No Previous Pregnancies: Yes Musculoskeletal Problems Arthritis: Yes Head,Eye,Nose,Throat Problems Cataracts: Yes (BILATERAL WITH IOL) Endocrine Problems Diabetes Mellitus Type 1: No Diabetes Mellitus Type 2: Yes Blood Problems Anemia: No Sickle Cell Disease: No Other Problems Falls: No Blood Transfusions: No Blood Transfusion Reaction: No Anesthesia Reactions: No MRSA: No Chicken Pox: Yes Cancer: No Surgical History Hysterectomy: Yes
[2025-06-10 09:02] VITALS: BP 125/82; PULSE 74; RESP 18; TEMP 36.1; O2SAT 92; BMI 30.2
== END 2025-06-10 09:48 | disposition home or self-care (01) ==
LOC: HODSRG 08:39
PROVIDERS: PCP Specialist; Referring Provider Specialist; Supervising Provider Surgery; Visit Provider Surgery
DX: K64.9 Unspecified hemorrhoids (principal); I10 Essential (primary) hypertension
CPT/HCPCS: 99213; G0463

== ENCOUNTER 2025-07-15 10:46 | Outpatient (AMB) | payer OTHER, SELFPAY ==
[2025-07-15 10:56] VITALS: BP 130/73; PULSE 74; RESP 18; TEMP 36.2; O2SAT 93; BMI 29.6
--- NOTE | 2025-07-15 10:56 | GSCOFFNT_ITS ---
Vital Signs - [facility] 07/15/25 10:56 Height 1.5 m Height Method Measured Weight 66.763 kg Weight Measurement Method Standing Scale BMI 29.6 BP 130/73 Blood Pressure Source Automatic Cuff Blood Pressure Location Left Upper Arm Position Sitting Respiration 18 Pulse 74 Pulse Source Monitor Temp 97.1 F Temp Source Temporal Artery Scan Pulse Oximetry (%) 93 L Oxygen Delivery Method Room Air Med/Allergies Allergies & Medications Allergies codeine Allergy (Intermediate, Verified 07/15/25 10:57) HIVES atorvastatin (From Lipitor) Allergy (Verified 07/15/25 10:57) Weakness metformin Allergy (Verified 07/15/25 10:57) NAUSEA, VOMITING metoprolol (From Toprol XL) Allergy (Verified 07/15/25 10:57) Nausea eszopiclone Adverse Reaction (Intermediate, Verified 07/15/25 10:57) SLEEP WALKING,AMNESIA ACEI Allergy (Uncoded 07/15/25 10:57) Unresponsive Medication Reconciliation nitroglycerin 0.4 mg sublingual tablet (Nitrostat) 0.4 mg SL PRN PRN CHEST TIGHTNESS #0 tabs 04/19/14 [History Confirmed 07/15/25] montelukast 10 mg tablet (Singulair) 10 mg PO QPM 05/02/19 [History Confirmed 07/15/25] rosuvastatin 5 mg tablet 40 mg PO QDAY 05/02/19 [History Confirmed 07/15/25] ipratropium 0.5 mg-albuterol 3 mg (2.5 mg base)/3 mL nebulization soln 3 ml inhalation Q4HR PRN Shortness Of Breath 11/25/20 [History Confirmed 07/15/25] tramadol 50 mg tablet 50 mg PO TID PRN Pain 11/25/20 [History Confirmed 07/15/25] isosorbide mononitrate 30 mg tablet,extended release 24 hr 30 mg PO QDAY 08/17/21 [History Confirmed 07/15/25] linagliptin 5 mg tablet (Tradjenta) 5 mg PO 1XD 04/24/24 [History Confirmed 07/15/25] melatonin 10 mg tablet 10 mg PO HS PRN Insomnia 04/24/24 [History Confirmed 07/15/25] amiloride 5 mg tablet 5 mg PO QDAY #30 tabs 05/01/24 [Rx Confirmed 07/15/25] erythromycin ethylsuccinate 400 mg/5 mL oral powder for suspension 400 mg (5 mL) PO QDAY #100 mL 05/01/24 [Rx Confirmed 07/15/25] losartan 50 mg tablet 50 mg PO QDAY #30 tabs 05/01/24 [Rx Confirmed 07/15/25] MA Intake Visit Data Collection New Patient or Established: Established Patient (seen at [facility] within 3 years) Seen by Clinical Staff ONLY (RN/BRAD): No Pain Present Currently: No Pain Scale Used: [place]/Numerical Masonry Inspector Required: No PCP or OBGYN visit in last 3 months: Yes Hx Now: No Do You Feel Safe at Home: Yes Authorities Contacted: N/A Smoking Status Smoking Status: Never smoker Immunization / Flu Flu Vaccine in the Last 12 Months: Yes Flu Vaccine Exclusion Criteria: Already Received Past Medical History Past Medical History NEUROLOGIC: Negative Neurological Disorders or Seizures CARDIAC: Positive Cardiac Disorders, Myocardial Infarction (1 CARDIAC STENT), Angina, Atherosclerotic Heart Disease, Hypercholesterolemia, Congestive Heart Failure and Hypertension RESPIRATORY: Positive Chronic Obstructive Pulmonary Disease (COPD), Asthma, Bronchitis and Sleep Apnea GASTROINTESTINAL: Positive Irritable Bowel, Hemorrhoids and Gastroesophageal Reflux Disease; Negative Gastrointestinal Disorders or Hepatitis GENITOURINARY: Negative Genitourinary Disorders or Renal Disease REPRODUCTIVE: Positive Previous Pregnancies; Negative Breast Cancer MUSCULOSKELETAL: Positive Arthritis ENT: Positive Cataracts (BILATERAL WITH IOL) ENDOCRINE: Positive Endocrine Disorders and Diabetes Mellitus Type 2; Negative Diabetes Mellitus Type 1 HEMATOLOGIC: Negative Blood Disorders, Anemia or Sickle Cell Disease OTHER HISTORY: Positive Chicken Pox; Negative Falls, Blood Transfusions, Blood Transfusion Reaction, Anesthesia Reactions, MRSA, Cancer or Breast Cancer Family History FAMILY HISTORY: Positive Family Cardiac Disorders (PARENTS); Negative Family Psychiatric Problems, Family Respiratory Disorders, Family Gastrointestinal Problems or Family Anesthesia Reaction Surgical History SURGICAL: Positive Cardiac Surgery (pt. 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 Since last visit pt began taking metamucil twice daily while continuing AG1 once daily and has noted a significant improvement in her BMs. They are more formed and she is not having episodes of incontinence as she had before. 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 As pt is having healthy BMs with no straining I feel it is now reasonable to pursue. I explained benefits/risks including severe pain, difficulty urinating, perianal abscess/fistula as well as hemorrhoid recurrence. All questions were answered and pt prefers to undergo excisional hemorrhoidectomy Advanced Care Planning Advance care planning discussed with:: other Office Procedures GNS Level of Care Nursing/Assessment Patient Status: Established Patient Nursing Assessment/Reassesment: Medication Reconciliation, Update PMH in EMR and Vital Signs Coordination of Care: Complex Care and Chronic Disease 1-5, Education Complex Pt/Fam, Consent,records obtained, informed consent, Results/Orders obtained and Staff clarify orders Established Patient Charge Established Patient Point Assignment: 95 Established Patient Point Charge: EP Level 3 (80-115) Patient Portal Questionaires Social History Living Situation History Housing: House Housing Other:: Pt form home Tobacco History Smoking Status: Never smoker Second Hand Smoke Exposure: No Alcohol History Alcohol Intake: Never Domestic Abuse History Do You Feel Safe at Home: Yes Review of Systems Report any current symptoms Only answer those that you have currently: Past Medical History Past Medical History Have you ever been diagnosed with any of the following: Neurological Problems Seizures: No Cardiology Problems Myocardial Infarction: Yes (1 CARDIAC STENT) Angina: Yes Atherosclerotic Heart Disease: Yes Hypercholesterolemia: Yes Congestive Heart Failure: Yes Hypertension: Yes Respiratory Problems Chronic Obstructive Pulmonary Disease (COPD): Yes Asthma: Yes Bronchitis: Yes Sleep Apnea: Yes Stomache/Intestinal Problems Hepatitis: No Irritable Bowel: Yes Hemorrhoids: Yes Gastroesophageal Reflux Disease: Yes Genital/Urinary Problems Renal Disease: No Reproductive Problems Breast Cancer: No Previous Pregnancies: Yes Musculoskeletal Problems Arthritis: Yes Head,Eye,Nose,Throat Problems Cataracts: Yes (BILATERAL WITH IOL) Endocrine Problems Diabetes Mellitus Type 1: No Diabetes Mellitus Type 2: Yes Blood Problems Anemia: No Sickle Cell Disease: No Other Problems Falls: No Blood Transfusions: No Blood Transfusion Reaction: No Anesthesia Reactions: No MRSA: No Chicken Pox: Yes Cancer: No Surgical History Hysterectomy: Yes
== END 2025-07-15 11:39 | disposition home or self-care (01) ==
LOC: HODSRG 10:46
PROVIDERS: PCP Specialist; Referring Provider Specialist; Supervising Provider Surgery; Visit Provider Surgery
DX: K64.9 Unspecified hemorrhoids (principal); I10 Essential (primary) hypertension
CPT/HCPCS: 99213; G0463

== ENCOUNTER → 2025-07-15 | Outpatient (CLI) | payer OTHER, SELFPAY ==
[2025-07-15 13:34] LABS: Creatinine MALB Rnd Ur 193 mg/dL (30-125); Microalbumin Creat Ratio 124 mg/gCrea (<30); Microalbumin, Random Urine 240 mg/L (0-300)
[2025-07-15 13:38] LABS: Alanine Aminotransferase 37 U/L (10-49); Albumin, Serum 5.0 gm/dL (3.4-4.8); Albumin/Globulin Ratio 1.9 (1.2-2.2); Alkaline Phosphatase 120 U/L (46-116); Anion Gap 10 (7-16); Aspartate Amino Transferase 30 U/L (0-34); BUN/Creatinine Ratio 23 Ratio (12-20); Bilirubin,Total 0.3 mg/dL (0.3-1.2); Blood Urea Nitrogen 25 mg/dL (9-23); Calcium 9.5 mg/dL (8.3-10.6); Calcium (Corrected) 9.5 mg/dL (8.5-10.1); Carbon Dioxide 24.2 mMol/L (20.0-31.0); Cardiac Risk Estimate 2.2 RATIO (3.7-5.6); Chloride 111 mMol/L (98-107); Cholesterol 130 mg/dL (132-200); Creatinine (Component) 1.1 mg/dL (0.6-1.3); Globulin 2.7 gm/dL (2.3-3.5); Glucose 186 mg/dL (74-106); HDL Cholesterol 58 mg/dL (40-60); LDL Cholesterol,Calculated 56 mg/dL (0-130); Osmolality,Calculated 298 (275-295); Potassium 4.4 mMol/L (3.4-5.1); Sodium 145 mMol/L (136-145); Thyroid Stimulating Hormone 0.81 uIU/mL (0.55-4.78); Total Protein 7.7 gm/dL (5.7-8.2); Triglycerides 82 mg/dL (30-150); eGFR 54 See Note
[2025-07-15 15:29] LABS: Glucose Estimated Average 148 mg/dL (80-131); Hemoglobin A1C 6.8 % Hgb (4.8-6.0)
== END | disposition home or self-care (01) ==
LOC: COPL 12:12
PROVIDERS: PCP Specialist; Referring Provider Specialist; Visit Provider Specialist
DX: E11.65 Type 2 diabetes mellitus with hyperglycemia (principal); E78.2 Mixed hyperlipidemia
CPT/HCPCS: 36415; 80053; 80061; 82043; 82570; 83036; 84443

== ENCOUNTER → 2025-07-22 | Outpatient (CLI) | payer OTHER, SELFPAY ==
[2025-07-22 11:02] LABS: Calcium, Ionized 4.9 mg/dL (4.6-5.6)
[2025-07-22 11:38] LABS: Parathyroid Hormone Intact 41.1 pg/ml (18.5-88.0)
[2025-07-22 11:45] LABS: Vitamin D 25 Hydroxy Total 32.2 ng/mL (7.3-40.2)
== END | disposition home or self-care (01) ==
LOC: COPL 10:15
PROVIDERS: PCP Specialist; Referring Provider Specialist; Visit Provider Specialist
DX: E83.51 Hypocalcemia (principal)
CPT/HCPCS: 36415; 82306; 82330; 83970